=== PATIENT | female | born 1995 | race Caucasian/White ===

== ENCOUNTER 2017-01-26 21:24 | Emergency (ER) | payer OTHER ==
[2017-01-26 21:29] VITALS: RESP 16; TEMP 98.2; O2SAT 97
--- NOTE | 2017-01-26 22:18 | EDPHY ---
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 The pain began suddenly, was in her left upper abdomen and felt crampy in nature, it eventually radiated toward her lower back. It was constant and progressive. She took ibuprofen 100 mg by mouth. When she arrived in the emergency room, the pain had completely subsided. Her last menstrual period was 2 weeks ago and she does have a history of irregular menses. She also has a history of ovarian cyst requiring hospitalization but no surgical intervention. About a week ago she was diagnosed with pharyngitis with a negative rapid strep test and has been feeling nauseated a week. She has not vomited. She has been able to eat and drink normally. Her last bowel movement was earlier this evening. She does not have any vaginal bleeding.. REVIEW OF SYSTEMS Constitutional: No fever, no chills. Eyes: No discharge. ENT: No sore throat. Cardiovascular: No chest pain, no palpitations. Respiratory: No cough, no shortness of breath. Gastrointestinal: See HPI Genitourinary: No hematuria. Musculoskeletal: No back pain. Skin: No rashes. Neurological: No headache. PMHx: History of ovarian cysts Soc Hx: Works at a restaurant, lives at home with family PHYSICAL General Appearance: Alert, no distress Eyes: Pupils equal and round no pallor or injection ENT, Mouth: Mucous membranes moist Respiratory: There are no retractions, lungs are clear to auscultation Cardiovascular: Regular rate and rhythm Gastrointestinal: Abdomen is soft and non-tender, no masses, bowel sounds normal Neurological: A&O, moves all extremities Skin: Warm and dry, no rashes Musculoskeletal: Neck is supple non tender Extremities: symmetrical, full range of motion Psychiatric: Patient is oriented X 3, there is no agitation Source: Patient Exam Limitations: No limitations - Personal History LMP (Females 10-55): 8-14 Days Ago Current Tetanus/Diphtheria Vaccine: Yes - Medical/Surgical History Hx Asthma: Yes Hx Chronic Respiratory Disease: No Hx Diabetes: No Hx Cardiac Disease: No Hx Renal Disease: No Hx Cirrhosis: No Hx Alcoholism: No Hx HIV/AIDS: No Hx Splenectomy or Spleen Trauma: No Other PMH: Ovarian cyst, Asthma, depression, anxiety - Social History Smoking Status: Never smoked Constitutional: Initial Vital Signs Temperature (C) 36.8 C 01/26/17 21:26 Heart Rate 76 01/26/17 21:26 Respiratory Rate 16 01/26/17 21:26 Blood Pressure 116/74 01/26/17 21:26 O2 Sat (%) 97 01/26/17 21:26 O2 Delivery Mode Room Air Allergies/Adverse Reactions: Penicillins Allergy (Verified 01/26/17 21:30) Home Medications: Medication Instructions Recorded lamoTRIgine [Lamictal] 200 mg PO 01/26/17 Medical Decision Making Differential Diagnosis: This is a 21-year-old healthy female who presents with 4 hours of abdominal pain which has now completely subsided. On exam, her vital signs are unremarkable, her abdominal exam is entirely benign. Differential diagnosis includes ruptured ovarian cyst, ovarian cyst, gas pain, constipation, functional abdominal pain. Given that she has had no ongoing symptoms in the emergency room, I have offered her discharge verses laboratory evaluation. She prefers to be discharged because she is feeling better and does not like needles. I feel this is reasonable. I have explained that she may have an ovarian cyst that ruptured. I have encouraged her to take ibuprofen as needed for pain, drink plenty of fluids, take MiraLax in the case that this is constipation. She feels comfortable with this and I will discharge her. Departure - Departure Disposition: Home, Routine, Self-Care Clinical Impression: Abdominal pain Qualifiers: Abdominal location: left upper quadrant Qualified Code(s): R10.12 - Left upper quadrant pain Condition: Good Instructions: Acute Abdominal Pain (ED) Additional Instructions: The cause of your pain is not entirely clear. It could be due to a burst ovarian cysts or gas pain. Please make sure to drink plenty of fluids, you can take ibuprofen for pain. If you would like, you can try a medicine that over- the-counter called MiraLax which can help with constipation. Referrals: [facility] [Other] - As per Instructions
[2017-01-26 22:48] VITALS: BP 116/72; PULSE 72
== END 2017-01-26 22:48 | disposition home or self-care (01) ==
DX: R10.12 Left upper quadrant pain (principal); J45.909 Unspecified asthma, uncomplicated